=== PATIENT | male | born 1975 | race Caucasian/White ===

== ENCOUNTER 2018-09-29 09:57 | Inpatient (IN) | payer MEDICARE, MEDICAID ==
[~2018-09-29] VITALS: Ht 170.2 cm; Wt 104.8 kg
[2018-09-29 10:48] LABS: EOSINOPHILS % 6.2 % (0.0-5.0); HEMATOCRIT. 48.4 % (42.0-52.0); HEMOGLOBIN. 16.4 g/dL (14.0-18.0); LYMPHOCYTES % 30.7 % (20.0-50.0); MEAN CORPUSCULAR HEMOGLOBIN 30.2 pg (28.0-32.0); MEAN CORPUSCULAR VOLUME 88.9 fL (80.0-94.0); MEAN PLATELET VOLUME 7.4 fl (7.4-10.4); NEUTROPHILS % 51.1 % (40.0-76.0); PLATELET 230 x1000/uL (130-400); RED BLOOD CELL COUNT 5.45 mill/uL (4.7-6.1); RED CELL DISTRIBUTION WIDTH 15.1 % (11.6-14.6)
[2018-09-29 10:55] LABS: CHLORIDE 94 mEq/L (98-107)
[2018-09-29 10:57] LABS: PROTHROMBIN TIME 10.3 sec (9.1-11.1)
[2018-09-29 11:06] LABS: ETHANOL BLOOD < 10 mg/dL
[2018-09-29] MEDS ORDERED: ASPIRIN 325MG EC TABLET PO ONE (12:00)
[2018-09-29 12:43] LABS: CLARITY URINE CLEAR (CLEAR); COLOR URINE YELLOW (YELLOW); KETONES URINE NEGATIVE (NEGATIVE); LEUKOCYTE ESTERASE URINE 2+ (NEGATIVE); NITRITE URINE NEGATIVE (NEGATIVE); OCCULT BLOOD URINE 1+ (NEGATIVE); PROTEIN URINE 2+ (NEGATIVE); SPECIFIC GRAVITY URINE 1.009 (1.005-1.030); UROBILINOGEN URINE 0.2 E.U./dL (0.2-1.0)
[2018-09-29 12:57] LABS: *AMPHETAMINES SCREEN URINE NEGATIVE (NEGATIVE); *BARBITURATES SCREEN URINE NEGATIVE (NEGATIVE); *BENZODIAZEPINES SCREEN URINE NEGATIVE (NEGATIVE); *COCAINE SCREEN URINE NEGATIVE (NEGATIVE); OPIATES URINE SCREEN NEGATIVE (NEGATIVE)
[2018-09-29 12:58] LABS: CANNABINOID URINE SCREEN NEGATIVE (NEGATIVE); PHENCYCLIDINE URINE SCREEN NEGATIVE (NEGATIVE)
[2018-09-29 12:59] LABS: METHADONE URINE SCREEN NEGATIVE (NEGATIVE)
[2018-09-29] MEDS ORDERED: CEFTRIAXONE 1 G PREMIX 50 ML IV ONE (13:45)
[2018-09-29 16:00] VITALS: BP 108/71
[2018-09-29] MEDS ORDERED: DOCUSATE SODIUM 100MG CAPSULE PO PRN (17:00)
[2018-09-29] MEDS ORDERED: HYDROCODONE/ACETAMINOPHEN 5/325MG TABLET PO PRN (17:00)
[2018-09-29] MEDS ORDERED: ACETAMINOPHEN 325MG TABLET PO PRN (17:00)
[2018-09-29] MEDS ORDERED: ONDANSETRON HCL 4MG/2ML INJ IV PRN (17:00)
[2018-09-29] MEDS ORDERED: CLONIDINE 0.1MG TABLET PO PRN (17:00)
[2018-09-29] MEDS ORDERED: MAGNESIUM/ALUMINUM HYDROXIDE/SIMETHICONE 30ML UDC PO PRN (17:00)
[2018-09-29] MEDS ORDERED: AMLODIPINE 10MG TABLET PO SCH (17:00)
[2018-09-29] MEDS ORDERED: SEVE800T8 MT (18:38)
[2018-09-29] MEDS ORDERED: GABA-531 MT (18:40)
[2018-09-29] MEDS ORDERED: LOPHC2 MT (18:40)
[2018-09-29] MEDS ORDERED: CALC667T5 MT (18:40)
[2018-09-29 20:00] VITALS: BP 114/67
[2018-09-29] MEDS ORDERED: CARISOPRODOL 350 MG TABLET PO SCH (21:00)
[2018-09-30] VITALS (7 sets, daily range): BP systolic 99–117; BP diastolic 61–78
[2018-09-30] MEDS: CARISOPRODOL 350 MG TABLET PO SCH ×3 (07:45→21:14)
[2018-09-30 07:48] LABS: BASOPHILS % 0.5 % (0.0-2.0); EOSINOPHILS % 5.5 % (0.0-5.0); HEMATOCRIT. 47.7 % (42.0-52.0); HEMOGLOBIN. 15.7 g/dL (14.0-18.0); LYMPHOCYTES % 24.4 % (20.0-50.0); MEAN CORPUSCULAR HEMOGLOBIN 29.9 pg (28.0-32.0); MEAN CORPUSCULAR VOLUME 90.5 fL (80.0-94.0); MEAN PLATELET VOLUME 7.7 fl (7.4-10.4); MONOCYTES % 11.1 % (2.0-8.0); NEUTROPHILS % 58.5 % (40.0-76.0); PLATELET 196 x1000/uL (130-400); RED BLOOD CELL COUNT 5.27 mill/uL (4.7-6.1); RED CELL DISTRIBUTION WIDTH 15.2 % (11.6-14.6)
[2018-09-30 08:24] LABS: CHLORIDE 95 mEq/L (98-107)
[2018-09-30] MEDS: CALCIUM ACETATE 667MG CAPSULE PO SCH ×3 (08:28→17:55)
[2018-09-30] MEDS: SEVELAMER CARBONATE 800 MG TABLET PO SCH ×3 (08:28→17:55)
[2018-09-30] MEDS: ASPIRIN 81MG EC TABLET PO SCH (08:28)
[2018-09-30] MEDS: FOLIC ACID/VITAMIN B COMP W-C TABLET PO SCH (08:29)
[2018-09-30 08:36] LABS: LDL CHOLESTEROL 82 mg/dL (5-100)
[2018-09-30 08:37] LABS: HDL CHOLESTEROL 38 mg/dL (40-59); T4 FREE 0.94 ng/dL (0.76-1.46)
[2018-09-30] MEDS: POLYETHYLENE GLYCOL 3350 (17GM) 1 DOSE PACK PO SCH (09:00)
[2018-09-30 09:08] LABS: PHOSPHORUS 8.6 mg/dL (2.5-4.9)
[2018-09-30] MEDS ORDERED: PREDNISONE 20MG TABLET PO SCH (18:00)
[2018-09-30] MEDS: ACYCLOVIR 400 MG TABLET PO SCH ×2 (18:28→21:14)
[2018-10-01 00:05] VITALS: BP 110/67
[2018-10-01 04:38] VITALS: BP 113/72
[2018-10-01] MEDS: CARISOPRODOL 350 MG TABLET PO SCH (06:13)
[2018-10-01] MEDS: ACYCLOVIR 400 MG TABLET PO SCH (06:13)
[2018-10-01 07:42] LABS: HEMOGLOBIN. 14.8 g/dL (14.0-18.0); MEAN CORPUSCULAR HEMOGLOBIN 30.1 pg (28.0-32.0); MEAN CORPUSCULAR VOLUME 91.3 fL (80.0-94.0); PLATELET 193 x1000/uL (130-400); RED BLOOD CELL COUNT 4.93 mill/uL (4.7-6.1); RED CELL DISTRIBUTION WIDTH 14.9 % (11.6-14.6)
[2018-10-01 07:52] LABS: PHOSPHORUS 5.6 mg/dL (2.5-4.9)
[2018-10-01] MEDS: SEVELAMER CARBONATE 800 MG TABLET PO SCH ×2 (09:27→15:58)
[2018-10-01] MEDS: POLYETHYLENE GLYCOL 3350 (17GM) 1 DOSE PACK PO SCH (09:27)
[2018-10-01] MEDS: FOLIC ACID/VITAMIN B COMP W-C TABLET PO SCH (09:27)
[2018-10-01] MEDS: CALCIUM ACETATE 667MG CAPSULE PO SCH ×2 (09:28→15:57)
[2018-10-01] MEDS: ASPIRIN 81MG EC TABLET PO SCH (09:28)
[2018-10-01] MEDS ORDERED: ACYC400T5 PO (09:39)
[2018-10-01] MEDS ORDERED: PREDNISONE 20MG TABLET PO NR ×2 (10:00→15:00)
[2018-10-01 10:15] LABS: PLATELET ESTIMATE NORMAL
[2018-10-01 11:29] VITALS: BP 126/86
[2018-10-01] MEDS ORDERED: ACYCLOVIR 200MG CAPSULE PO SCH (21:00)
== END 2018-10-01 16:05 | disposition home or self-care (01) | DRG 73 ==
LOC: ER 11:12 → 8WST 12:17 → EDBEDREQ 12:18 → ENRESERV 13:56
PROVIDERS: ADMIT Hospitalist; ATTEND Hospitalist
DX: G51.0 Bell's palsy (principal); N18.6 End stage renal disease; N39.0 Urinary tract infection, site not specified; N25.81 Secondary hyperparathyroidism of renal origin; I16.0 Hypertensive urgency; I10 Essential (primary) hypertension; N28.1 Cyst of kidney, acquired; M48.02 Spinal stenosis, cervical region; M10.9 Gout, unspecified; K59.00 Constipation, unspecified; F32.9 Major depressive disorder, single episode, unspecified; D64.9 Anemia, unspecified; E83.39 Other disorders of phosphorus metabolism; Z82.71 Family history of polycystic kidney; Z99.2 Dependence on renal dialysis; Z90.49 Acquired absence of other specified parts of digestive tract; Z88.8 Allergy status to other drugs, medicaments and biological substances
CPT/HCPCS: 36415; 70544; 70551; 71045; 72141; 76770; 80048; 80061; 80305; 82962; 84100; 84439; 84443; 84484; 85651; 86141; 93005; 93306; 93880; 93970; 96365; 96366; 97162; 97166; 99291; G0482; J0696; J7512

== ENCOUNTER 2018-12-08 17:29 | Emergency (ER) | payer MEDICARE, MEDICAID ==
[~2018-12-08] VITALS: Ht 175.3 cm; Wt 91.0 kg
[~2018-12-08 17:29] MED LIST: ACYC400T5 PO; CALC667T5 MT; SEVE800T8 MT
[2018-12-08 20:00] VITALS: BP 128/80
== END 2018-12-08 20:03 | disposition home or self-care (01) ==
LOC: ER 17:29
DX: M54.2 Cervicalgia (principal); R51 Headache; I10 Essential (primary) hypertension; Z88.1 Allergy status to other antibiotic agents; Z88.8 Allergy status to other drugs, medicaments and biological substances; Z90.49 Acquired absence of other specified parts of digestive tract; V79.49XA Driver of bus injured in collision with other motor vehicles in traffic accident, initial encounter; Y93.89 Activity, other specified; Y92.89 Other specified places as the place of occurrence of the external cause; Y99.8 Other external cause status
CPT/HCPCS: 99284